=== PATIENT | female | born 1955 | race Caucasian/White ===

== ENCOUNTER 2021-01-30 13:04 | Emergency (ER) | payer OTHER ==
[~2021-01-30] VITALS: Ht 165.1 cm; Wt 71.7 kg
[2021-01-30] MEDS ORDERED: SYNTHROID100 MC1 PO (13:27)
[2021-01-30] MEDS ORDERED: ZANAFLEX4 M1 PO (13:27)
[2021-01-30] MEDS ORDERED: FUROSEMIDE 20 M20 MG PO (13:27)
[2021-01-30] MEDS ORDERED: NEXIUM 24HR20 M2 PO (13:27)
[2021-01-30] MEDS ORDERED: SONATA5 M1 PO (13:28)
[2021-01-30] MEDS ORDERED: TOPAMAX100 MG PO (13:28)
[2021-01-30] MEDS ORDERED: FLEXERIL PO (13:29)
[2021-01-30 15:01] VITALS: BP 173/100
== END 2021-01-30 15:01 | disposition left against medical advice (07) ==
LOC: M.ERS 13:04
DX: M79.605 Pain in left leg (principal); M79.604 Pain in right leg; Z53.21 Procedure and treatment not carried out due to patient leaving prior to being seen by health care provider; Z88.0 Allergy status to penicillin; Z88.2 Allergy status to sulfonamides; Z88.1 Allergy status to other antibiotic agents; Z88.8 Allergy status to other drugs, medicaments and biological substances; Z88.6 Allergy status to analgesic agent; Z91.011 Allergy to milk products